=== PATIENT | female | born 1975 | race Caucasian/White ===

== ENCOUNTER 2017-06-28 08:31 | Emergency (ER) | payer MEDICAID, OTHER ==
[~2017-06-28] VITALS: Ht 157.5 cm; Wt 52.3 kg
[~2017-06-28 08:31] MED LIST: CLIN150 PO; CYCL-36 PO; SULF-154 PO; TRAM50 PO; Z.0.NO CURRENT MEDS
[2017-06-28 08:35] VITALS: BP 105/71; PULSE 71; RESP 14; TEMP 98; O2SAT 100
[2017-06-28 08:55] VITALS: BP 101/71; PULSE 80; RESP 15; TEMP 98; O2SAT 100
[2017-06-28] MEDS ORDERED: SODIUM CHLORIDE 0.9% FLUSH 10 ML FLUSH IVF PRN (09:00)
[2017-06-28 09:01] VITALS: BP 100/71; PULSE 79; RESP 15; TEMP 98; O2SAT 100
--- NOTE | 2017-06-28 09:06 | PD ---
HPI Chief Complaint: Psychiatric Symptoms Time Seen by Provider: 08:48 Travel History International Travel<30 days: No Contact w/Intl Traveler<30days: No Traveled to known affect area: No History of Present Illness HPI The patient was seen and examined in the presence of the nurse. This patient presents under police Fitzpatrick act. Patient reports that she joked with her boyfriend about wanting to overdose on her medications a couple days ago. She says this morning at 4 AM she was having trouble sleeping so took 2 25 mg Benadryl's to try to sleep. She denies trying to hurt herself or overdose. She has history of IV methamphetamine abuse but not in the last week per her report. She did have a couple of alcoholic drinks. Denies history of depression or psychiatric problem. Severity is moderate. No alleviating factors. Duration 5 hours. Boyfriend came home this morning and called 911 when he found her drowsy PFSH Past Medical History Hx Anticoagulant Therapy: No Cardiovascular Problems: No Chemotherapy: No Cerebrovascular Accident: No Diabetes: No Diminished Hearing: No Hepatitis: Yes (HEP C ) Respiratory: No Immunizations Current: Yes Influenza Vaccination: No ?: Not Tubal Ligation: Yes Past Surgical History Surgical History: No Previous Surgery Hysterectomy: No Other Surgery: Yes (NASAL SURGERY) Social History Alcohol Use: Yes Tobacco Use: Yes Substance Use: Yes Allergies-Medications (Allergen,Severity, Reaction): Coded Allergies: doxycycline (Unverified Allergy, Severe, EDEMA, THROAT CLOSES, 06/18/17) erythromycin base (Unverified Allergy, Severe, EDEMA, THROAT CLOSES, ) minocycline (Unverified Allergy, Severe, EDEMA, THROAT CLOSES, 06/18/17) tetracycline (Verified Allergy, Severe, Anaphylaxis, 06/28/17) tigecycline (Unverified Allergy, Severe, EDEMA, THROAT CLOSES, 06/18/17) Reported Meds & Prescriptions Reported Meds & Active Scripts Active No Active Prescriptions or Reported Medications Review of Systems General / Constitutional: No: Fever Eyes: No: Visual changes HENT: No: Headaches Cardiovascular: No: Chest Pain or Discomfort Respiratory: No: Shortness of Breath Gastrointestinal: No: Abdominal Pain Genitourinary: No: Dysuria Musculoskeletal: No: Pain Skin: No Rash Neurologic: No: Weakness Psychiatric: Positive: Substance Abuse, No: Disorder of Thought Endocrine: No: Polydipsia Hematologic/Lymphatic: No: Easy Bruising Physical Exam Narrative GENERAL: Thin slightly drowsy well-developed patient in no apparent distress. SKIN: Focused skin assessment reveals no rash and nodules. Skin is Warm and dry. HEAD: Atraumatic. Normocephalic. EYES: Pupils equal and round. No scleral icterus. No injection or drainage. ENT: No nasal bleeding or discharge. Mucous membranes pink and moist. NECK: Trachea midline. No JVD. CARDIOVASCULAR: Regular rate and rhythm. No murmur appreciated. RESPIRATORY: No accessory muscle use. Clear to auscultation. Breath sounds equal bilaterally. GASTROINTESTINAL: Abdomen soft, non-tender, nondistended. Hepatic and splenic margins not palpable. MUSCULOSKELETAL: No obvious deformities. No clubbing. No cyanosis. No edema. NEUROLOGICAL: Awake but a bit drowsy. No obvious cranial nerve deficits. Motor grossly within normal limits. Normal speech. PSYCHIATRIC: Appropriate mood and flat affect; insight and judgment poor . Data Data Last Documented VS Vital Signs Date Time Temp Pulse Resp B/P (MAP) Pulse Ox O2 Delivery O2 Flow Rate FiO2 06/28/17 12:28 72 15 99/75 (83) 99 06/28/17 09:01 98.0 Room Air Orders Orders Electrocardiogram (06/28/17 08:56) Complete Blood Count With Diff (06/28/17 08:56) Comprehensive Metabolic Panel (06/28/17 08:56) Iv Access Insert/Monitor (06/28/17 08:56) Ecg Monitoring (06/28/17 08:56) Oximetry (06/28/17 08:56) Psych Screen (06/28/17 08:56) Sodium Chloride 0.9% Flush (Ns Flush) (06/28/17 09:00) Drug Screen, Random Urine (06/28/17 08:56) Alcohol (Ethanol) (06/28/17 08:56) Salicylates (Aspirin) (06/28/17 08:56) Tylenol (Acetaminophen) (06/28/17 08:56) Ed Urine Pregnancytest Poc (06/28/17 09:06) Labs Laboratory Tests Test 06/28/17 08:45 06/28/17 12:00 White Blood Count 6.4 TH/MM3 Red Blood Count 3.85 MIL/MM3 Hemoglobin 12.3 GM/DL Hematocrit 36.0 % Mean Corpuscular Volume 93.6 FL Mean Corpuscular Hemoglobin 31.8 PG Mean Corpuscular Hemoglobin Concent 34.0 % Red Cell Distribution Width 12.5 % Platelet Count 150 TH/MM3 Mean Platelet Volume 8.6 FL Neutrophils (%) (Auto) 54.4 % Lymphocytes (%) (Auto) 33.2 % Monocytes (%) (Auto) 10.7 % Eosinophils (%) (Auto) 1.1 % Basophils (%) (Auto) 0.6 % Neutrophils # (Auto) 3.5 TH/MM3 Lymphocytes # (Auto) 2.1 TH/MM3 Monocytes # (Auto) 0.7 TH/MM3 Eosinophils # (Auto) 0.1 TH/MM3 Basophils # (Auto) 0.0 TH/MM3 CBC Comment DIFF FINAL Differential Comment Blood Urea Nitrogen 16 MG/DL Creatinine 0.68 MG/DL Random Glucose 83 MG/DL Total Protein 6.4 GM/DL Albumin 3.4 GM/DL Calcium Level 7.8 MG/DL Alkaline Phosphatase 62 U/L Aspartate Amino Transf (AST/SGOT) 13 U/L Alanine Aminotransferase (ALT/SGPT) 17 U/L Total Bilirubin 1.0 MG/DL Sodium Level 139 MEQ/L Potassium Level 3.8 MEQ/L Chloride Level 108 MEQ/L Carbon Dioxide Level 23.6 MEQ/L Anion Gap 7 MEQ/L Estimat Glomerular Filtration Rate 94 ML/MIN Salicylates Level 2.7 MG/DL Acetaminophen Level LESS THAN 2.0 MCG/ML Ethyl Alcohol Level 25 MG/DL MDM Medical Decision Making Medical Screen Exam Complete: Yes Emergency Medical Condition: Yes Medical Record Reviewed: Yes Differential Diagnosis Depression, suicidal ideation, medication overuse, polysubstance abuse Narrative Course I have reviewed the patient's electronic medical record. Her last visit here was in 2011 for back pain IV placed CBC is normal Metabolic profile is normal LFTs are normal Alcohol is 25 Tylenol is negative Aspirin is negative Urine drug screen is pending but not likely to manager exchange Urine is negative I reviewed her EKG which shows sinus rhythm without ectopy or ST elevation Extended cardiac monitoring reveals sinus rhythm without ectopy I've ordered psychiatric screening and she is here under the Fitzpatrick act. Patient will get psychiatric evaluation and that we'll determine disposition. He is medically stable as can be made. No dangerous overdose here. Diagnosis Primary Impression: Depression with suicidal ideation Additional Impressions: Medication side effect Qualified Codes: T88.7XXA - Unspecified adverse effect of drug or medicament, initial encounter Intravenous drug abuse, episodic Scripts No Active Prescriptions or Reported Meds Jb Correa MD Jun 28, 2017 09:06
[2017-06-28 09:43] LABS: AUTOMATED NEUTROPHIL # 3.5 TH/MM3 (1.8-7.7); BASOPHIL % 0.6 % (0.0-2.0); EOSINOPHIL # 0.1 TH/MM3 (0-0.4); EOSINOPHIL % 1.1 % (0.0-4.0); HEMO FLAGS DIFF FINAL; LYMPH % 33.2 % (9.0-44.0); LYMPHOCYTE # 2.1 TH/MM3 (1.0-4.8); MEAN CELL VOLUME 93.6 FL (80.0-100.0); MEAN CORPUSCULAR HEMOGLOBIN 31.8 PG (27.0-34.0); MONO % 10.7 % (0.0-8.0); NEUT % 54.4 % (16.0-70.0); PLATELET COUNT 150 TH/MM3 (150-450); RED BLOOD COUNT 3.85 MIL/MM3 (4.00-5.30); RED CELL DISTRIBUTION WIDTH 12.5 % (11.6-17.2); WHITE BLOOD COUNT 6.4 TH/MM3 (4.0-11.0)
[2017-06-28 10:39] LABS: ALKALINE PHOSPHATASE 62 U/L (45-117)
[2017-06-28 10:42] LABS: ALT (GPT) 17 U/L (10-53); ANION GAP 7 MEQ/L (5-15); AST (GOT) 13 U/L (15-37); BICARBONATE 23.6 MEQ/L (21.0-32.0); BLOOD UREA NITROGEN 16 MG/DL (7-18); CHLORIDE 108 MEQ/L (98-107); GLOMERULAR FILTRATION RATE 94 ML/MIN (>89); POTASSIUM 3.8 MEQ/L (3.5-5.1); SODIUM (NA) 139 MEQ/L (136-145)
[2017-06-28 10:45] LABS: ACETAMINOPHEN LESS THAN 2.0 MCG/ML (10.0-30.0); ALCOHOL 25 MG/DL (0-5)
[2017-06-28 12:28] VITALS: BP 99/75
[2017-06-28 14:07] VITALS: BP 108/74; PULSE 82; RESP 18; O2SAT 98
--- NOTE | 2017-06-28 17:37 | PD ---
History of Present Illness Chief Complaint: Psychiatric Symptoms Time Seen by Provider: 17:30 Travel History International Travel<30 Days: No Contact w/Intl Traveler<30days: No Known affected area: No Legal Status Legal Status: Fitzpatrick Act Fitzpatrick Act Signed By: Howie Anna History of Present Illness: 41-year-old female brought in under a Fitzpatrick act for reported overdose on 225 mg Benadryl capsules. Patient got into a verbal altercation with her and he called the police on her and "had me Amari acted". Both the patient and her apparently used drugs and the patient is positive for methamphetamine and marijuana and alcohol. However, at this time the patient is calm, pleasant and cooperative. She believes her had her Fitzpatrick acted because he wanted to use her truck and she would not let him. She has a job to go to tomorrow morning. Her cognition is intact and she is verbally galilea for safety. She denies any suicidal or homicidal ideation, plan or intent. She has no psychotic symptoms. PFSH Past Medical History Medical History: Denies Significant Hx Hx Anticoagulant Therapy: No Cardiovascular Problems: No Chemotherapy: No Cerebrovascular Accident: No Diabetes: No Diminished Hearing: No Hepatitis: Yes (HEP C ) Respiratory: No Immunizations Current: Yes Influenza Vaccination: No ?: Not Tubal Ligation: Yes Past Surgical History Surgical History: No Previous Surgery Hysterectomy: No Other Surgery: Yes (NASAL SURGERY) Psychiatric History Psychiatric History Hx Psychiatric Treatment: NO PAST PSYCHIATRIC HX History of Inpatient Treatment: No Guns or firearms in home: No Social History Hx Alcohol Use: Yes Hx Tobacco Use: Yes Hx Substance Use: Yes Substance Use Type: Alcohol, Marijuana, Amphetamines-Stimulants Other Substances Used: METH AND MARIJUANA; ETOH OCCASSIONALLY Hx of Substance Use Treatment: No Allergies-Medications (Allergen,Severity, Reaction): Coded Allergies: doxycycline (Unverified Allergy, Severe, EDEMA, THROAT CLOSES, 06/18/17) erythromycin base (Unverified Allergy, Severe, EDEMA, THROAT CLOSES, ) minocycline (Unverified Allergy, Severe, EDEMA, THROAT CLOSES, 06/18/17) tetracycline (Verified Allergy, Severe, Anaphylaxis, 06/28/17) tigecycline (Unverified Allergy, Severe, EDEMA, THROAT CLOSES, 06/18/17) Reported Meds & Prescriptions Reported Meds & Active Scripts Active No Active Prescriptions or Reported Medications Review of Systems Except as stated in HPI: all other systems reviewed are Neg Exam Alert: Yes [place]: Person, Place, Date, Situation Mood: Calm Affect: Appropriate Speech: Clear, Logical Eye Contact: Normal Memory Intact: Immediate, Recent, Remote Insight/Judgement Adequate MDM Medical Decision Making Medical Record Reviewed: Yes Assessment/Plan Patient's record was reviewed and this physician spoke with the patient's nurse , Beverley. As patient is competent to contract for safety, she is being referred to [facility] for further treatment. At this time however she does not meet criteria for Fitzpatrick act or involuntary psychiatric hospitalization. She is verbally galilea for safety and she is competent to do so. Orders Orders Electrocardiogram (06/28/17 08:56) Complete Blood Count With Diff (06/28/17 08:56) Comprehensive Metabolic Panel (06/28/17 08:56) Iv Access Insert/Monitor (06/28/17 08:56) Ecg Monitoring (06/28/17 08:56) Oximetry (06/28/17 08:56) Psych Screen (06/28/17 08:56) Sodium Chloride 0.9% Flush (Ns Flush) (06/28/17 09:00) Drug Screen, Random Urine (06/28/17 08:56) Alcohol (Ethanol) (06/28/17 08:56) Salicylates (Aspirin) (06/28/17 08:56) Tylenol (Acetaminophen) (06/28/17 08:56) Ed Urine Pregnancytest Poc (06/28/17 09:06) Diet Regular Basic (06/28/17 Dinner) Results Vital Signs Date Time Temp Pulse Resp B/P (MAP) Pulse Ox O2 Delivery O2 Flow Rate FiO2 06/28/17 14:07 82 18 108/74 (85) 98 Room Air 06/28/17 12:28 72 15 99/75 (83) 99 06/28/17 09:01 98.0 79 15 100/71 (81) 100 Room Air 06/28/17 08:55 98.0 80 15 101/71 (81) 100 Room Air 06/28/17 08:35 98.0 71 14 105/71 (82) 100 Laboratory Tests Test 06/28/17 08:45 06/28/17 12:00 White Blood Count 6.4 Red Blood Count 3.85 Hemoglobin 12.3 Hematocrit 36.0 Mean Corpuscular Volume 93.6 Mean Corpuscular Hemoglobin 31.8 Mean Corpuscular Hemoglobin Concent 34.0 Red Cell Distribution Width 12.5 Platelet Count 150 Mean Platelet Volume 8.6 Neutrophils (%) (Auto) 54.4 Lymphocytes (%) (Auto) 33.2 Monocytes (%) (Auto) 10.7 Eosinophils (%) (Auto) 1.1 Basophils (%) (Auto) 0.6 Neutrophils # (Auto) 3.5 Lymphocytes # (Auto) 2.1 Monocytes # (Auto) 0.7 Eosinophils # (Auto) 0.1 Basophils # (Auto) 0.0 CBC Comment DIFF FINAL Differential Comment Blood Urea Nitrogen 16 Creatinine 0.68 Random Glucose 83 Total Protein 6.4 Albumin 3.4 Calcium Level 7.8 Alkaline Phosphatase 62 Aspartate Amino Transf (AST/SGOT) 13 Alanine Aminotransferase (ALT/SGPT) 17 Total Bilirubin 1.0 Sodium Level 139 Potassium Level 3.8 Chloride Level 108 Carbon Dioxide Level 23.6 Anion Gap 7 Estimat Glomerular Filtration Rate 94 Salicylates Level 2.7 Acetaminophen Level LESS THAN 2.0 Ethyl Alcohol Level 25 Urine Opiates Screen NEG Urine Barbiturates Screen NEG Urine Amphetamines Screen POS Urine Benzodiazepines Screen NEG Urine Cocaine Screen NEG Urine Cannabinoids Screen POS Diagnosis Primary Impression: Adjustment disorder with mixed disturbance of emotions and conduct Additional Impression: Cannabis abuse Prescriptions No Active Prescriptions or Reported Meds Problem Qualifiers Teja Greer MD Jun 28, 2017 17:36
--- NOTE | 2017-06-29 18:53 | EKG ---
Date Performed: 06/28/2017 Time Performed: 08:46:19 PTAGE: 41 years EKG: Sinus rhythm WITH SHORT ID INTERVAL BORDERLINE ECG NO PREVIOUS TRACING DOCTOR: Maria Elena Vazquez Interpretating Date/Time 06/29/2017 18:52:25
== END 2017-06-28 18:02 | disposition home or self-care (01) ==
LOC: NEPC 08:31 → NEPJ 18:02
DX: F43.25 Adjustment disorder with mixed disturbance of emotions and conduct (principal); F12.10 Cannabis abuse, uncomplicated; T45.0X1A Poisoning by antiallergic and antiemetic drugs, accidental (unintentional), initial encounter; Z86.19 Personal history of other infectious and parasitic diseases; Z72.0 Tobacco use; Z88.1 Allergy status to other antibiotic agents; Z88.8 Allergy status to other drugs, medicaments and biological substances
CPT/HCPCS: 80053; 80307; 84703; 85025; 93005; 99284